=== PATIENT | male | born 1970 | race Caucasian/White ===

== ENCOUNTER 2016-04-10 16:51 | Emergency (ER) | payer BC ==
[~2016-04-10] VITALS: Ht 182.9 cm; Wt 158.8 kg
--- NOTE | 2016-04-10 16:57 | NUR ---
Placed in room 06 . Placed on state game warden, blood pressure machine and pulse oximeter. To gown for exam. Side rails up.
[2016-04-10 16:59] VITALS: BP 162/84; PULSE 77; RESP 18; TEMP 98.5; O2SAT 96
--- NOTE | 2016-04-10 17:00 | NUR ---
Pt report received from SHAYY Fields. Pt c/o hematuria since 12:30 today while at work. He states that he passed blood clots and it [place] when he urinates. Pt denies purulent discharge.
--- NOTE | 2016-04-10 17:03 | NUR ---
Dr. Silva at bedside to assess pt.
--- NOTE | 2016-04-10 17:05 | NUR ---
U/A collected and sent to lab. Urine appeared bright red.
[2016-04-10] MEDS ORDERED: NACL 0.9% 1,000 ML IV ONE (17:15)
--- NOTE | 2016-04-10 17:20 | NUR ---
# 20 gauge angiocath placed to Right Wrist. Use of asceptic technique. Opsite placed over site. Blood return noted. Blood for lab drawn from site. Flushed with 10 cc of normal saline. No evidence of infiltration noted. Patient tolerated well.
[2016-04-10 17:31] LABS: BILIRUBIN,URINE NEGATIVE (NEGATIVE); BLOOD, URINE 3+ (NEGATIVE); CLARITY/URINE CLOUDY (CLEAR); COLOR,URINE RED (YELLOW); GLUCOSE,URINE NEGATIVE (NEGATIVE); KETONES,URINE NEGATIVE (NEGATIVE); LEUKOCYTE ESTERASE ,URINE NEGATIVE (NEGATIVE); NITRITE, URINE NEGATIVE (NEGATIVE); PH,URINE 6.5 (5.0-8.0); PROTEIN URINE 3+ (NEGATIVE); UROBILINOGEN,URINE 0.2 (0.2-1.0)
[2016-04-10 17:36] LABS: BASOPHILS # (AUTO) 0.3 K/uL (0.0-0.2); BASOPHILS % (AUTO) 1.8 % (0.0-2.0); EOSINOPHILS # (AUTO) 0.4 K/uL (0.0-0.4); HEMATOCRIT 51.8 % (36-54); HEMOGLOBIN 16.8 g/dL (14.0-18.0); LYMPHOCYTES % (AUTO) 10.8 % (20.5-51.5); MEAN CORPUSCULAR HEMOGLOBIN 29 pg (27-31); MEAN CORPUSCULAR HGB CONC 33 % (32-36); MEAN CORPUSCULAR VOLUME 90 fL (79.0-98.0); MONOCYTES # (AUTO) 0.9 K/uL (0.0-1.0); MONOCYTES % (AUTO) 5.1 % (1.7-9.3); NEUTROPHILS # (AUTO) 14.9 K/uL (1.8-7.7); NEUTROPHILS % (AUTO) 80.3 % (40.0-70.0); PLATELET COUNT (AUTO) 246 K/uL (130-430); RED BLOOD CELL COUNT(AUTO) 5.76 MIL/uL (4.2-6.2); RED CELL DISTRIBUTION WIDTH 12.6 % (9.0-15.0); WHITE BLOOD COUNT (AUTO) 18.5 K/uL (4.8-10.8)
[2016-04-10 17:39] LABS: CALCIUM 9.5 mg/dL (8.4-11.0); CREATININE 0.93 mg/dL (0.55-1.30); POTASSIUM 3.9 mmol/L (3.5-5.1)
[2016-04-10 17:42] LABS: BACTERIA,URINE FEW /HPF (None Seen); RBC,URINE >100 /HPF (0-3); WBC,URINE 0-3 /HPF (0-3)
[2016-04-10 17:43] LABS: ALBUMIN 3.8 g/dL (3.4-4.8); TOTAL BILIRUBIN 0.6 mg/dL (0.0-1.0)
[2016-04-10 17:53] LABS: PROTHROMBIN TIME 10.9 SECS (9.5-12.5)
--- NOTE | 2016-04-10 18:27 | NUR ---
Pt sitting on side of bed, denies c/o pain or discomfort, no needs verbalized at this time.
[2016-04-10] MEDS ORDERED: cefTRIAXone 1 GM IVPB PREMIX 50 ML IV ONE (18:30)
--- NOTE | 2016-04-10 19:00 | NUR ---
No needs verbalized at this time.
[2016-04-10] MEDS ORDERED: CIPROFLOXACIN HCL 500 MG TABLET PO ONE (19:30)
--- NOTE | 2016-04-10 19:35 | NUR ---
Patient given written and verbal discharge instructions and verbalizes understanding. ER MD discussed with patient the results and treatment provided. Patient in stable condition. ID arm band removed. IV catheter removed intact and dressing applied, no active bleeding. Rx of Cipro given. Patient educated on pain management and to follow up with PMD. Pain Scale 0/10. Opportunity for questions provided and answered.
[2016-04-10 19:36] VITALS: BP 155/76; PULSE 82; RESP 20; TEMP 98.2; O2SAT 100
== END 2016-04-10 19:35 | disposition home or self-care (01) ==
LOC: SED 16:51
DX: N39.0 Urinary tract infection, site not specified (principal); R31.9 Hematuria, unspecified; I10 Essential (primary) hypertension; R07.81 Pleurodynia; Z88.0 Allergy status to penicillin; Z88.1 Allergy status to other antibiotic agents
CPT/HCPCS: 36415; 74176; 80053; 81000; 82150; 83605; 83690; 85025; 85610; 85730; 87040; 96361; 96374; 99285; J0696; J7030

== ENCOUNTER 2017-02-22 15:23 | Inpatient (IN) | payer BC ==
[~2017-02-22] VITALS: Ht 182.9 cm; Wt 173.7 kg
[2017-02-22 15:47] VITALS: BP_SYST 143
--- NOTE | 2017-02-22 16:25 | NUR ---
BROUGHT BACK TO BED #4 AND REPORT GIVEN TO PATRICIA
--- NOTE | 2017-02-22 16:32 | NUR ---
PT AAOX4, ABLE TO VERBALIZE NEEDS. PT STATES HE HAS HAD SHORTNESS OF BREATH FOR THE PAST 1 WEEK. PT STATES AT REST HE IS NOT SHORT OF BREATH BUT HAS DIFFICULTY WITH ACTIVITY AND EVEN TALKING D/T SHORTNESS OF BREATH. PT ABLE TO SPEAK IN FULL SENTENCES AT THIS TIME. LUNGS CLEAR TO AUSCULTATION. NO OTHER COMPLAINTS/INJURIES PER PT OR NOTED.
[2017-02-22] MEDS ORDERED: FUROSEMIDE 100 MG/10 ML VIAL IVP ONE (16:45)
[2017-02-22] MEDS ORDERED: ASPIRIN 325 MG TABLET PO ONE (16:45)
[2017-02-22] MEDS ORDERED: MORPHINE 4 MG/ML INJ. SYRINGE IVP ONE (16:45)
[2017-02-22] MEDS ORDERED: MORPHINE SULFATE 10 MG/ML VIAL ONE (16:49)
[2017-02-22 16:55] LABS: CALCIUM 9.1 mg/dL (8.4-11.0); CREATININE 1.14 mg/dL (0.55-1.30)
[2017-02-22 16:58] LABS: BASOPHILS # (AUTO) 0.1 K/uL (0.0-0.2); BASOPHILS % (AUTO) 0.7 % (0.0-2.0); EOSINOPHILS % (AUTO) 0.3 % (0.0-4.0); HEMATOCRIT 47.3 % (36-54); LYMPHOCYTES # (AUTO) 2.4 K/uL (1.0-5.5); LYMPHOCYTES % (AUTO) 25.7 % (20.5-51.5); MEAN CORPUSCULAR HEMOGLOBIN 31 pg (27-31); MEAN CORPUSCULAR HGB CONC 32 % (32-36); MEAN CORPUSCULAR VOLUME 97 fL (79.0-98.0); MONOCYTES # (AUTO) 0.8 K/uL (0.0-1.0); MONOCYTES % (AUTO) 8.3 % (1.7-9.3); NEUTROPHILS # (AUTO) 6.1 K/uL (1.8-7.7); PLATELET COUNT (AUTO) 283 K/uL (130-430); RED BLOOD CELL COUNT(AUTO) 4.87 MIL/uL (4.2-6.2); WHITE BLOOD COUNT (AUTO) 9.4 K/uL (4.8-10.8)
[2017-02-22] MEDS ORDERED: ALBUTEROL SULFATE 0.083% 2.5 MG/3 ML VIAL.NEB IH ONE (17:00)
[2017-02-22] MEDS ORDERED: methylPREDNISolone SOD SUCC/PF 62.5 MG/ML VIAL IVP ONE (17:00)
[2017-02-22] MEDS ORDERED: MAGNESIUM SULFATE 50 ML IV ONE (17:00)
[2017-02-22] MEDS ORDERED: IPRATROPIUM BROM 0.5 MG/2.5 ML VIAL.NEB (ATROVENT) IH ONE (17:00)
[2017-02-22 17:01] LABS: ALBUMIN 3.2 g/dL (3.4-4.8)
[2017-02-22 17:23] LABS: INR 1.3 (0.80-1.20); PROTHROMBIN TIME 13.1 SECS (9.5-12.5)
--- NOTE | 2017-02-22 18:10 | NUR ---
IV meds given as ordered; pt marino; urine specimen collected and sent to lab
[2017-02-22 18:32] LABS: BILIRUBIN,URINE NEGATIVE (NEGATIVE); BLOOD, URINE 1+ (NEGATIVE); CLARITY/URINE CLEAR (CLEAR); COLOR,URINE YELLOW (YELLOW); GLUCOSE,URINE NEGATIVE (NEGATIVE); KETONES,URINE NEGATIVE (NEGATIVE); LEUKOCYTE ESTERASE ,URINE NEGATIVE (NEGATIVE); NITRITE, URINE NEGATIVE (NEGATIVE); PH,URINE 5.5 (5.0-8.0); PROTEIN URINE 2+ (NEGATIVE)
[2017-02-22 18:38] LABS: BACTERIA,URINE FEW /HPF (None Seen); RBC,URINE NONE SEEN /HPF (0-3); WBC,URINE 0-3 /HPF (0-3)
[2017-02-22 18:39] LABS: MUCUS,URINE None Seen /LPF (None Seen)
[2017-02-22] MEDS ORDERED: ALBMDI INH (18:54)
--- NOTE | 2017-02-22 18:54 | NUR ---
Medication reconciliation completed with information provided by PT. Any prior medication reconciliation on file was reviewed and corrected.
--- NOTE | 2017-02-22 19:10 | NUR ---
JENNI Dacosta at bedside for re-evaluation.
--- NOTE | 2017-02-22 19:15 | NUR ---
Per patient, code status is full code.
--- NOTE | 2017-02-22 19:20 | NUR ---
Consent obtained for CT of chest with contrast.
--- NOTE | 2017-02-22 19:22 | NUR ---
# 18 gauge angiocath placed to LAC. Use of asceptic technique. Opsite placed over site. Blood return noted. Flushed with 10 cc of normal saline. No evidence of infiltration noted. Patient tolerated well.
--- NOTE | 2017-02-22 19:25 | NUR ---
Patient transported to radiology via gurney, accompanied by motorsports technician. No acute distress noted at this time.
[2017-02-22] MEDS ORDERED: IOHEXOL 350 mgI/mL, 150 ML INFUS..BTL IV ONE (19:41)
[2017-02-22] MEDS ORDERED: HEPARIN 25,000 UNITS/D5W 250ML 250 ML IV ONE (21:15)
--- NOTE | 2017-02-22 21:30 | NUR ---
Patient will be admitted to care of Dr. Bryson. Admitted to ICU unit. Will go to room 6. Belongings list completed. Summary report printed. Report will be given at bedside.
[2017-02-22 22:00] VITALS: BP_SYST 129; BP_SYST 158
--- NOTE | 2017-02-22 22:05 | NUR ---
ADMISSION Pt alert and oriented x4. Pt on NC @ 2L. SOB on exertion. ST on monitor. No signs of acute distress noted. IV20G and 18g to LASL, no signs of infiltration noted. Skin intact. Belongings at bedside. Pt denies any pain at this time. Safety precautions in place, call light within reach. Will continue to monitor.
[2017-02-22] MEDS ORDERED: HEPARIN SODIUM,PORCINE 3000 UNITS/0.6 ML BOLUS IVP PRN (22:15)
[2017-02-22] MEDS ORDERED: HEPARIN SODIUM,PORCINE 5000 UNITS/ML VIAL IV ONE (22:30)
--- NOTE | 2017-02-22 22:40 | NUR ---
Dr. Roman at bedside examining patient.
[2017-02-22 23:00] VITALS: BP_SYST 133
[2017-02-22] MEDS: HEPARIN 25,000 UNITS in 250 ML PREMIX IV PRN (23:11)
[2017-02-22] MEDS ORDERED: ZOLPIDEM TARTRATE 5 MG TABLET PO ONE (23:30)
[2017-02-23] VITALS (15 sets, daily range): BP systolic 113–163
--- NOTE | 2017-02-23 03:20 | NUR ---
CHG bath given. Pt tolerated care well. Will continue to monitor.
--- NOTE | 2017-02-23 07:25 | NUR ---
ENDORSEMENT Pt care endorsed to SHAYY Eisenberg at bedside using nursing SBAR.
--- NOTE | 2017-02-23 08:00 | NUR ---
ASSESSMENT PT RESTING IN BED, AAO, DENIES DISCOMFORT, SLIGHT SOB AT REST. RECEIVING O2 AT 2 LMP.
[2017-02-23 08:06] LABS: CREATININE 0.92 mg/dL (0.55-1.30)
[2017-02-23 08:30] LABS: BASOPHILS % (AUTO) 0.3 % (0.0-2.0); EOSINOPHILS % (AUTO) 0.1 % (0.0-4.0); HEMATOCRIT 51.5 % (36-54); HEMOGLOBIN 16.6 g/dL (14.0-18.0); LYMPHOCYTES # (AUTO) 0.6 K/uL (1.0-5.5); MEAN CORPUSCULAR HEMOGLOBIN 30 pg (27-31); MEAN CORPUSCULAR HGB CONC 32 % (32-36); MEAN CORPUSCULAR VOLUME 93 fL (79.0-98.0); MONOCYTES # (AUTO) 0.1 K/uL (0.0-1.0); MONOCYTES % (AUTO) 1.5 % (1.7-9.3); NEUTROPHILS # (AUTO) 8.6 K/uL (1.8-7.7); NEUTROPHILS % (AUTO) 92.1 % (40.0-70.0); PLATELET COUNT (AUTO) 183 K/uL (130-430); RED BLOOD CELL COUNT(AUTO) 5.54 MIL/uL (4.2-6.2); RED CELL DISTRIBUTION WIDTH 13.4 % (9.0-15.0); WHITE BLOOD COUNT (AUTO) 9.3 K/uL (4.8-10.8)
[2017-02-23 08:34] LABS: THYROID STIMULATING HORMONE 0.57 uIu/mL (0.36-3.74)
--- NOTE | 2017-02-23 09:15 | NUR ---
HEPARIN DRIP HEPARIN DRIP INCREASED TO 1800 U/HR PER PROTECOL. 3000 UNITS GIVEN IVP IN ADDITION PER PROTECOL. HAS EPISODES OF VENTRICULAR BIGEMY. DENIES CHEST DISCOMFORT, PAIN OR PRESSURE.
[2017-02-23] MEDS: PANTOPRAZOLE SODIUM 40 MG TAB PO SCH (09:32)
[2017-02-23] MEDS: HEPARIN 25,000 UNITS in 250 ML PREMIX IV PRN ×2 (09:42→14:26)
--- NOTE | 2017-02-23 10:00 | NUR ---
TELEMETRY PT IS TELEMETRY STATUS NOW. TEACHING DONE REGARDING MEDICATIONS, INSTRUCTED TO USE URINAL SO NURSE CAN DOCUMENT URINE OUTPUT. HAS NO COMPLAINTS OF DISCOMFORT OR PAIN.
--- NOTE | 2017-02-23 10:00 | NUR ---
VENOUS DOPPLER VENOUS DOPPLER STUDY COMPLETED, NO EVIDENCE OF CLOTS.
[2017-02-23] MEDS ORDERED: FUROSEMIDE 40 MG/4 ML VIAL IVP ONE (10:45)
[2017-02-23] MEDS ORDERED: IPRATROPIUM BROM 0.5 MG/2.5 ML VIAL.NEB (ATROVENT) INH PRN (10:45)
[2017-02-23] MEDS ORDERED: ALBUTEROL SULFATE 0.083% 2.5 MG/3 ML VIAL.NEB INH PRN (10:45)
--- NOTE | 2017-02-23 14:00 | NUR ---
HEPARIN HEPARIN DRIP INCREASED TO 1900 U/HR. PER PROTECOL. HAS NO C/O OF DISCOMFORT, USES URINAL, NO BM. HAS NO REQUESTS.
--- NOTE | 2017-02-23 16:00 | NUR ---
DR. AMBER CLARK PAGED REGARDING PTS. REQUEST FOR SLEEPING MEDICATION.
--- NOTE | 2017-02-23 19:00 | NUR ---
REPORT REPORT GIVEN TO NIGHT NURSE.
[2017-02-23] MEDS ORDERED: ZOLPIDEM TARTRATE 5 MG TABLET PO PRN (19:15)
[2017-02-23] MEDS: IPRATROPIUM BROM 0.5 MG/2.5 ML VIAL.NEB (ATROVENT) INH SCH (19:51)
[2017-02-23] MEDS: ALBUTEROL SULFATE 0.083% 2.5 MG/3 ML VIAL.NEB INH SCH (19:51)
--- NOTE | 2017-02-23 20:09 | NUR ---
CALLED DR. EPPS FOR CONSULT. SPOKE TO [facility]. NURSE IS AWARE.
--- NOTE | 2017-02-23 20:30 | NUR ---
PM SHIFT ASSESSMENT Pt alert and oriented x4. Pt on NC @ 2L. SOB on exertion. ST on monitor. No signs of acute distress noted. IV20G and 18g to LASL, no signs of infiltration noted. Heparin drip infusing. Skin intact. Belongings at bedside. Pt denies any pain at this time. Safety precautions in place, call light within reach. Will continue to monitor.
--- NOTE | 2017-02-23 20:50 | NUR ---
LAB here for PTT blood draw. Will continue to monitor.
[2017-02-23] MEDS ORDERED: *HEPARIN PER PHARMACY XX PRN (21:15)
[2017-02-23] MEDS: methylPREDNISolone SOD SUCC 40 MG/ML VIAL IVP SCH (21:39)
[2017-02-23] MEDS: LORazepam 2 MG/ML VIAL IVP PRN (22:30)
[2017-02-23] MEDS: HEPARIN SODIUM,PORCINE 2000 UNITS/0.4 ML BOLUS IVP PRN (22:32)
[2017-02-24] VITALS (7 sets, daily range): BP systolic 122–149
[2017-02-24] MEDS: ALBUTEROL SULFATE 0.083% 2.5 MG/3 ML VIAL.NEB INH SCH ×4 (01:00→19:18)
[2017-02-24] MEDS: IPRATROPIUM BROM 0.5 MG/2.5 ML VIAL.NEB (ATROVENT) INH SCH ×4 (01:00→19:18)
--- NOTE | 2017-02-24 01:10 | NUR ---
Pt sleeping in bed. VSS. No signs of acute distress or SOB noted. Will continue to monitor.
[2017-02-24] MEDS: HEPARIN 25,000 UNITS in 250 ML PREMIX IV PRN ×2 (02:44→17:02)
--- NOTE | 2017-02-24 06:35 | NUR ---
Pt made aware of transfer to tele unit. VSS. Will continue to monitor.
--- NOTE | 2017-02-24 07:13 | NUR ---
ENDORSEMENT Pt care endorsed to day shift RN at bedside using nursing SBAR.
[2017-02-24 07:27] LABS: BASOPHILS % (AUTO) 0.3 % (0.0-2.0); HEMATOCRIT 50.6 % (36-54); HEMOGLOBIN 16.4 g/dL (14.0-18.0); LYMPHOCYTES # (AUTO) 0.7 K/uL (1.0-5.5); LYMPHOCYTES % (AUTO) 5.4 % (20.5-51.5); MEAN CORPUSCULAR HEMOGLOBIN 30 pg (27-31); MEAN CORPUSCULAR HGB CONC 33 % (32-36); MEAN CORPUSCULAR VOLUME 93 fL (79.0-98.0); MONOCYTES # (AUTO) 0.5 K/uL (0.0-1.0); MONOCYTES % (AUTO) 3.8 % (1.7-9.3); NEUTROPHILS # (AUTO) 11.2 K/uL (1.8-7.7); NEUTROPHILS % (AUTO) 90.5 % (40.0-70.0); PLATELET COUNT (AUTO) 223 K/uL (130-430); RED BLOOD CELL COUNT(AUTO) 5.43 MIL/uL (4.2-6.2); RED CELL DISTRIBUTION WIDTH 13.8 % (9.0-15.0); WHITE BLOOD COUNT (AUTO) 12.4 K/uL (4.8-10.8)
[2017-02-24] MEDS ORDERED: FLU VACC QS 2017-18(36MOS+)/PF 0.5 ML/SYR SYRINGE I.M. PRN (07:30)
--- NOTE | 2017-02-24 07:45 | NUR ---
AM NOTES: Received patient alert,awake. oriented, denies pain and discomfort at this time. informed about the poc. sob on exertion noted. on 02@2l/nc saturation 91%. heparin drip infusing 85520 units/hr. left ac#18. skin at ramsey le discoloration and swelling +3. diuresis. encourage call when assistance needed. Addendum: 02/24/17 at 0851 by Janelle Jones RN correction of units supposed to be 2100 units/hr
--- NOTE | 2017-02-24 07:50 | NUR ---
PTT 47.2, HEPARIN DRIP INCREASE TO 100 UNITS PER HOUR. NOW 2200UNITS /HR.
--- NOTE | 2017-02-24 08:43 | NUR ---
PAGED DR. RALPH IN REQUEST FROM DR. CLARK.
[2017-02-24] MEDS: methylPREDNISolone SOD SUCC 40 MG/ML VIAL IVP SCH ×2 (08:45→20:47)
[2017-02-24] MEDS: PANTOPRAZOLE SODIUM 40 MG TAB PO SCH (08:45)
--- NOTE | 2017-02-24 09:40 | NUR ---
TRANSFERRED CARE TO PATRICIA LUCAS. PATIENT ROOM ASSIGNMENT 117B. ALL NEEDS METS. BELONGINGS SENT WITH PATIENT. NO OTHER CONCERNED NOTED.
--- NOTE | 2017-02-24 10:00 | NUR ---
RECEIVED PT FROM ICU, REPORT FROM KVNG RN. PT AAOx4, ABLE TO VERBALIZE NEEDS. NO SIGNS DISTRESS NOTED. PT PLACED ON TELEMETRY. 02 SAT 97% ON 2LNC, NORMAL RESPIRATIONS OBSERVED, PT DENIES SHORTNESS OF BREATH AT THIS TIME AND STATES HE ONLY HAS DYSPNEA WITH ACTIVITY. 20G LEFT FOREARM IV WITH HEPARIN DRIP AT 2200UNITS AT THIS TIME. PT DENIES PAIN. HOB ELEVATED, BED LOCKED AND IN LOWEST POSITION, CALL LIGHT IN REACH. WILL CONTINUE TO MONITOR.
--- NOTE | 2017-02-24 12:00 | NUR ---
ROUNDS PT AWAKE IN BED TALKING TO FAMILY, NO SIGNS DISTRESS NOTED. PT DENIES PAIN/SHORTNESS OF BREATH AT THIS TIME. DISCUSSED PLAN OF CARE WITH PT AND ANSWERED QUESTIONS REGARDING TX WITH HEPARIN DRIP. WILL CONTINUE TO MONITOR.
--- NOTE | 2017-02-24 14:05 | NUR ---
ROUNDS PT AWAKE, SITTING UP IN BED WATCHING TV. NO SIGNS DISTRESS NOTED. PT DENIES PAIN/SHORTNESS OF BREATH. WILL CONTINUE TO MONITOR.
[2017-02-24] MEDS ORDERED: METOPROLOL SUCCINATE 25 MG TAB.SR.24H (TOPROL XL) PO ONE (15:00)
[2017-02-24] MEDS ORDERED: LISINOPRIL 5 MG TABLET PO ONE (15:00)
--- NOTE | 2017-02-24 15:17 | NUR ---
CONSULTATION PAGED REASON FOR CONSULTATION:P.E. WAS CONSULT CALLED?:Y PERSON WHO WAS NOTIFIED:ELVIE CONSULTING PHYSICIAN:SARAH SULLIVAN MENTAL HEALTH CASE MANAGER SPECIALTY:HEMATOLOGY MENTAL HEALTH CASE MANAGER PHONE NUMBER:[phone] REQUESTING PHYSICIAN:DARA BENNETT
--- NOTE | 2017-02-24 15:37 | NUR ---
Dietitian Recommendations * Recommend continuing cardiac diet per MD * Consider HgA1c lab draw LP, RD Please refer to Nutrition Assessment for details.
--- NOTE | 2017-02-24 15:44 | NUR ---
ROUNDS PT SITTING UP IN BED TALKING TO FRIEND. NO SIGNS DISTRESS NOTED. PT ON 2LNC, DENIES SHORTNESS OF BREATH, NORMAL RESPIRATIONS NOTED, PT ABLE TO SPEAK IN FULL SENTENCES WITHOUT DIFFICULTY. PT DENIES PAIN AT THIS TIME. WILL CONTINUE TO MONITOR.
[2017-02-24] MEDS: HEPARIN SODIUM,PORCINE 2000 UNITS/0.4 ML BOLUS IVP PRN (17:03)
--- NOTE | 2017-02-24 17:08 | NUR ---
HEPARIN HEPARIN DRIP INCREASED TO 2400 UNITS/HR AND 3000UNITS IVP GIVEN, PTT 30.8.
--- NOTE | 2017-02-24 18:25 | NUR ---
END OF SHIFT PT AAOX4, ABLE TO VERBALIZE NEEDS. PT SITTING UP IN BED EATING DINNER. PT ON 2LNC, DENIES SHORTNESS OF BREATH. 20G LEFT FOREARM IV WITH HEPARIN DRIP INFUSING AT 2400 UNITS/HR, NO SIGNS INFILTRATION NOTED. PT DENIES PAIN AT THIS TIME. PT ENCOURAGED TO CALL FOR ASSISTANCE WHEN HE NEEDS TO AMBULATE TO THE BATHROOM OR FOR [place] OTHER NEEDS. HOB ELEVATED, BED LOCKED AND IN LOWEST POSITION, CALL LIGHT IN REACH.
[2017-02-24 19:16] LABS: INR 1.1 (0.80-1.20); PROTHROMBIN TIME 11.5 SECS (9.5-12.5)
--- NOTE | 2017-02-24 19:45 | NUR ---
Beginning of shift assessment Pt sitting up in bed A&Ox4. Able to make needs known, able to follow commands. Pt on O2 @ 2 l/m via n/c. Respirations even and unlabored. no s/s of respiratory distress. Pt denies pain at this time. dust box worker shows ST. 18 g to L AC infusing Heparin drip at 2400 u/hr. No s/s of infiltration or infection. 20 g IV to L FA, SL. No s/s of infiltration or infection. Call light within reach, bed in low position for safety, will continue to monitor.
[2017-02-24] MEDS ORDERED: WARFARIN SODIUM 5 MG TABLET PO ONE (21:00)
--- NOTE | 2017-02-24 23:41 | NUR ---
Heparin drip aPTT 47.2, heparin drip adjusted per protocol. Now infusing at 2500 u/hr. Will continue to monitor
[2017-02-25 01:06] VITALS: BP_SYST 124
--- NOTE | 2017-02-25 01:20 | NUR ---
Anxiety Pt c/o anxiety, requesting Ativan to help him relax. Will administer per MD order
[2017-02-25] MEDS: IPRATROPIUM BROM 0.5 MG/2.5 ML VIAL.NEB (ATROVENT) INH SCH ×4 (01:36→20:06)
[2017-02-25] MEDS: LORazepam 2 MG/ML VIAL IVP PRN ×2 (01:36→22:55)
[2017-02-25] MEDS: ALBUTEROL SULFATE 0.083% 2.5 MG/3 ML VIAL.NEB INH SCH ×4 (01:36→20:06)
--- NOTE | 2017-02-25 04:36 | NUR ---
IV dislodged Pt reports he was repositioning himself in bed and IV dislodged. 18 g to L AC completely pulled out. No active bleeding noted. IV catheter intact. Heparin drip now infusing to IV site on L FA.
[2017-02-25 06:55] LABS: INR 1.1 (0.80-1.20); PROTHROMBIN TIME 11.5 SECS (9.5-12.5)
[2017-02-25 06:57] LABS: BASOPHILS % (AUTO) 0.3 % (0.0-2.0); HEMATOCRIT 49.3 % (36-54); HEMOGLOBIN 15.9 g/dL (14.0-18.0); LYMPHOCYTES # (AUTO) 0.7 K/uL (1.0-5.5); LYMPHOCYTES % (AUTO) 5.9 % (20.5-51.5); MEAN CORPUSCULAR HEMOGLOBIN 30 pg (27-31); MEAN CORPUSCULAR HGB CONC 32 % (32-36); MEAN CORPUSCULAR VOLUME 93 fL (79.0-98.0); MONOCYTES # (AUTO) 0.6 K/uL (0.0-1.0); MONOCYTES % (AUTO) 4.8 % (1.7-9.3); NEUTROPHILS # (AUTO) 10.7 K/uL (1.8-7.7); PLATELET COUNT (AUTO) 226 K/uL (130-430); RED BLOOD CELL COUNT(AUTO) 5.29 MIL/uL (4.2-6.2); RED CELL DISTRIBUTION WIDTH 13.4 % (9.0-15.0)
--- NOTE | 2017-02-25 07:20 | NUR ---
End of shift report Endorsed pt care and SBAR to SHAYY Oh.
[2017-02-25 08:00] VITALS: BP_SYST 136
--- NOTE | 2017-02-25 08:00 | NUR ---
AM ASSESSMENT PT IN BED WITH EYES CLOSED, RISE AND FALL OF CHEST NOTED, RESPONDS TO VERBAL STIMULATION. NO SIGNS DISTRESS NOTE.D O2 SAT 93% ON 2LNC, NORMAL RESPIRATIONS OBSERVED, PT DENIES SHORTNESS OF BREATH AND STATES HE ONLY GETS SLIGHTLY SHORT OF BREATH AFTER GETTING UP AND WALKING TO THE RESTROOM. PT ENCOURAGED TO USE CALL LIGHT FOR ASSISTANCE WHEN HE WANTS TO AMBULATE TO BATHROOM. 20G LEFT FOREARM IV WITH HEPARIN DRIP AT 2500 UNITS/HR, NO SIGNS INFILTRATION NOTED. HOB ELEVATED, BED LOCKED AND IN LOWEST POSITION, CALL LIGHT IN REACH. WILL CONTINUE TO MONITOR.
[2017-02-25 08:24] LABS: CALCIUM 9.8 mg/dL (8.4-11.0); CREATININE 0.95 mg/dL (0.55-1.30); POTASSIUM 4.2 mmol/L (3.5-5.1)
[2017-02-25] MEDS: ATORVASTATIN 20 MG TABLET PO SCH (08:35)
[2017-02-25] MEDS: METOPROLOL SUCCINATE 25 MG TAB.SR.24H (TOPROL XL) PO SCH (08:36)
[2017-02-25] MEDS: PANTOPRAZOLE SODIUM 40 MG TAB PO SCH (08:37)
[2017-02-25] MEDS: ASPIRIN 81 MG TABLET(ECOTRIN) PO SCH (08:37)
[2017-02-25] MEDS: FUROSEMIDE 40 MG/4 ML VIAL IVP SCH (08:38)
[2017-02-25] MEDS: methylPREDNISolone SOD SUCC 40 MG/ML VIAL IVP SCH (08:38)
[2017-02-25] MEDS ORDERED: LISINOPRIL 5 MG TABLET PO SCH (09:00)
--- NOTE | 2017-02-25 09:39 | NUR ---
HEPARIN DRIP HEPARIN DRIP INCREASED FROM 2500 UNITS/HR TO 2600 UNITS/HR D/T PTT 44.8, VERIFIED BY IGNACIA LUCAS.
--- NOTE | 2017-02-25 10:39 | NUR ---
ROUNDS PT AMBULATED TO RESTROOM WITHOUT DIFFICULTY, GAIT IS STEADY. PT DENIES SHORTNESS OF BREATH. PT WAS ABLE TO GET BACK INTO BED WITHOUT ASSISTANCE. WILL CONTINUE TO MONITOR.
[2017-02-25 12:10] VITALS: BP_SYST 139
--- NOTE | 2017-02-25 12:21 | NUR ---
ROUNDS PT AWAKE, SITTING UP IN BED EATING LUNCH. PT DENIES SHORTNESS OF BREATH/CHEST PAIN. PT STATES THAT HE HAS BEEN ABLE TO AMBULATE TO BATHROOM WITHOUT DIFFICULTY AND HAS NOT BEEN FEELING SHORT OF BREATH. PT ON 2LNC, NORMAL RESPIRATIONS OBSERVED. CALL LIGHT IN REACH. WILL CONTINUE TO MONITOR.
[2017-02-25] MEDS: HEPARIN 25,000 UNITS in 250 ML PREMIX IV PRN ×2 (13:40→22:55)
--- NOTE | 2017-02-25 14:10 | NUR ---
ROUNDS PT AWAKE IN BED, WATCHING TV. NO SIGNS DISTRESS NOTED. PT DENIES PAIN/SHORTNESS OF BREATH. CALL LIGHT IN REACH. WILL CONTINUE TO MONITOR.
[2017-02-25 16:00] VITALS: BP_SYST 124
--- NOTE | 2017-02-25 16:00 | NUR ---
ROUNDS PT AWAKE, SITTING UP IN BED TALKING TO FRIEND. NO SIGNS DISTRESS NOTED. PT DENIES PAIN/SHORTNESS OF BREATH. PT ON 2LNC, NORMAL RESPIRATIONS NOTED. CALL LIGHT IN REACH. WILL CONTINUE TO MONITOR.
[2017-02-25] MEDS ORDERED: WARFARIN SODIUM 5 MG TABLET PO SCH (18:00)
[2017-02-25] MEDS ORDERED: LISINOPRIL 5 MG TABLET PO ONE (18:00)
--- NOTE | 2017-02-25 18:04 | NUR ---
END OF SHIFT PT AAOX4, SITTING UP IN BED WATCHING TV. NO SIGNS DISTRESS NOTED, PT DENIES PAIN/SHORTNESS OF BREATH. PT ON 2LNC, NORMAL RESPIRATIONS NOTED. SINUS TACHY ON MONITOR. 20G LEFT FOREARM IV WITH HEPARIN DRIP AT 2600 UNITS/HR, NO SIGNS INFILTRATION NOTED. HOB ELEVATED, BED LOCKED AND IN LOWEST POSITION, CALL LIGHT IN REACH. WILL CONTINUE TO MONITOR.
[2017-02-25 20:00] VITALS: BP_SYST 115
--- NOTE | 2017-02-25 20:00 | NUR ---
INITIAL CONTACT patient is alert oriented x 4. breathing even and unlabored. breath sound clear on bilateral upper lobe, wheezing bilateral lower lobe. abdomen is large, round, nontender. bilateral radial pulse regular and equal, bilateral dorsalis pedis pulse weak. bilateral upper and lower extremity strength normal. 2+ edema on bilateral lower extremity. plan of care discussed, advised patient to call for assist. bed in lowest position, call light within reach. will continue to monitor.
[2017-02-25] MEDS: PREDNISONE 20 MG TABLET PO SCH (21:24)
--- NOTE | 2017-02-25 22:00 | NUR ---
ROUNDS patient watching t.v. requests cake. informed him that we only have jello at this time. patient requested Jello. two jello given. advised patient to call for assist PRN. call light within reach. bed in lowest position. will continue to monitor.
--- NOTE | 2017-02-26 00:20 | NUR ---
ROUNDS patient was sleeping comfortably in bed. easily aroused to take vital signs. patient denies any pain at this time. will continue to monitor.
[2017-02-26 00:21] VITALS: BP_SYST 144
--- NOTE | 2017-02-26 01:50 | NUR ---
ROUNDS patient sleeping in bed comfortably, no distress noted. will continue to monitor.
[2017-02-26] MEDS: ALBUTEROL SULFATE 0.083% 2.5 MG/3 ML VIAL.NEB INH SCH ×2 (02:28→07:22)
[2017-02-26] MEDS: IPRATROPIUM BROM 0.5 MG/2.5 ML VIAL.NEB (ATROVENT) INH SCH ×2 (02:29→07:22)
--- NOTE | 2017-02-26 03:46 | NUR ---
ROUNDS patient sleeping in bed, breathing even and unlabored. bed in lowest position, call light within reach. will continue to monitor.
[2017-02-26 05:00] VITALS: BP_SYST 133
--- NOTE | 2017-02-26 06:26 | NUR ---
ROUNDS patient sitting in bed comfortably, requesting pudding. pudding given to patient. patient denies any pain or sob. will continue to monitor.
--- NOTE | 2017-02-26 07:16 | NUR ---
END OF SHIFT care endorsed to dayshift RN. no distress noted with patient.
--- NOTE | 2017-02-26 07:30 | NUR ---
AM NOTES: RECEIVED PATIENT LYING IN BED. AWAKE. ORIENTED. INFORMED ABOUT THE POC. NO S/S OF BLEEDING ON HEPARIN DRIP 2600 UNITS/HR. IV SITE PATENT.SOB ON EXERTION NOTED. ENCOURAGE TO CALL WHEN ASSISTANCE NEEDED. WILL MONITOR.
[2017-02-26 07:46] LABS: BASOPHILS # (AUTO) 0.1 K/uL (0.0-0.2); BASOPHILS % (AUTO) 1.1 % (0.0-2.0); EOSINOPHILS % (AUTO) 0.1 % (0.0-4.0); HEMATOCRIT 48.7 % (36-54); HEMOGLOBIN 16.1 g/dL (14.0-18.0); LYMPHOCYTES # (AUTO) 1.4 K/uL (1.0-5.5); LYMPHOCYTES % (AUTO) 11.9 % (20.5-51.5); MEAN CORPUSCULAR HEMOGLOBIN 30 pg (27-31); MEAN CORPUSCULAR HGB CONC 33 % (32-36); MEAN CORPUSCULAR VOLUME 92 fL (79.0-98.0); MONOCYTES # (AUTO) 0.8 K/uL (0.0-1.0); MONOCYTES % (AUTO) 6.6 % (1.7-9.3); NEUTROPHILS # (AUTO) 9.8 K/uL (1.8-7.7); NEUTROPHILS % (AUTO) 80.3 % (40.0-70.0); PLATELET COUNT (AUTO) 225 K/uL (130-430); RED BLOOD CELL COUNT(AUTO) 5.31 MIL/uL (4.2-6.2); RED CELL DISTRIBUTION WIDTH 13.2 % (9.0-15.0); WHITE BLOOD COUNT (AUTO) 12.1 K/uL (4.8-10.8)
[2017-02-26 08:00] VITALS: BP_SYST 123
[2017-02-26] MEDS: HEPARIN 25,000 UNITS in 250 ML PREMIX IV PRN ×2 (08:10→21:04)
[2017-02-26 08:12] LABS: CALCIUM 9.1 mg/dL (8.4-11.0); CREATININE 0.97 mg/dL (0.55-1.30); POTASSIUM 4.2 mmol/L (3.5-5.1)
[2017-02-26 08:14] LABS: INR 1.5 (0.80-1.20)
[2017-02-26] MEDS: PANTOPRAZOLE SODIUM 40 MG TAB PO SCH (08:17)
[2017-02-26] MEDS: PREDNISONE 20 MG TABLET PO SCH ×2 (08:17→21:10)
[2017-02-26] MEDS: METOPROLOL SUCCINATE 25 MG TAB.SR.24H (TOPROL XL) PO SCH (08:18)
[2017-02-26] MEDS: ATORVASTATIN 20 MG TABLET PO SCH (08:18)
[2017-02-26] MEDS: LISINOPRIL 5 MG TABLET PO SCH (08:18)
[2017-02-26] MEDS: ASPIRIN 81 MG TABLET(ECOTRIN) PO SCH (08:20)
--- NOTE | 2017-02-26 09:35 | NUR ---
PTT 64.8, HEPARIN DRIP INFUSION SAME RATE 2600 UNITS/HR. DAILY PTT PER PROTOCOL ORDERED.
[2017-02-26] MEDS: FUROSEMIDE 40 MG/4 ML VIAL IVP SCH (10:13)
[2017-02-26] MEDS ORDERED: PRO40 PO (11:49)
[2017-02-26] MEDS ORDERED: FURO-150 PO (11:49)
[2017-02-26] MEDS ORDERED: METO25TA3 PO (11:49)
[2017-02-26] MEDS ORDERED: METF-509 PO (11:49)
[2017-02-26] MEDS ORDERED: LIP20 PO (11:49)
[2017-02-26] MEDS ORDERED: PRED20TA PO (11:49)
[2017-02-26] MEDS ORDERED: LISI-209 PO (11:49)
[2017-02-26] MEDS ORDERED: ASPI-1063 PO (11:49)
[2017-02-26 12:00] VITALS: BP_SYST 118; BP_SYST 145
--- NOTE | 2017-02-26 12:00 | NUR ---
MD ROUNDS: SEEN BY DR. RIOS WITH NEW ORDER RECEIVED.
[2017-02-26] MEDS ORDERED: RIVA15TA PO (12:21)
[2017-02-26] MEDS ORDERED: RIVAROXABAN 15 MG TABLET PO ONE (14:00)
--- NOTE | 2017-02-26 14:52 | NUR ---
D/C Patient Patient given medication reconciliation form and D/C instructions. Exit Care provided. Patient verbalized understanding. MD discussed with patient the results and treatment provided. Ambulatory with steady gait for discharge to home. Patient in stable condition, ID band removed. IV catheter removed, intact and dressing applied, no active bleeding. Rx of XARELTO, LISINOPRIL, ASPIRIN, METOPROLOL, LASIX, PREDNISONE,PROTONIX, LIPITOR given. Patient educated on pain management. All belongings sent with patient.WHEELOUT VIA WHEELCHAIR. MIAN [employer] ACID TESTER.
--- NOTE | 2017-02-26 15:15 | NUR ---
MD RALPH IS HERE, LOOKING FOR PATIENT. INFORMED PATIENT WAS DISCHARGE 15 MINS AGO. STATED PATIENT NEED TO COME BACK TO HOSPITAL. NOT STABLE FOR DISCHARGE DUE TO PULMONARY EMBOLISM AND LEVEL ON PT/INR AND PTT NOT ON THERAPEUTIC LEVEL. MD RALPH , L S/W PATIENT VIA PHONE AND PT IS WILLING TO COMEBACK IN THE HOSPITAL TO CONTINUE TREATMENT. CHARGE NURSE AND ESTIMATION MANAGER INVOLVED.
[2017-02-26] MEDS ORDERED: *HEPARIN PER PHARMACY XX ONE (15:30)
--- NOTE | 2017-02-26 16:00 | NUR ---
PATIENT CAME BACK. STABLE CONDITION. VITAL SIGN STABLE, AFEBRILE. NO S/S OF DISTRESS. INFORMED ABOUT THE POC.PLACED BACK TO TELEMONITOR ST. ROOM ASSIGNMENT 109A.
--- NOTE | 2017-02-26 16:47 | NUR ---
MD ARAIZA INFORMED PATIENT IS BACK.
[2017-02-26 16:50] VITALS: BP_SYST 133
[2017-02-26] MEDS ORDERED: WARFARIN SODIUM 5 MG TABLET PO SCH (18:00)
--- NOTE | 2017-02-26 18:10 | NUR ---
ALL NEEDS METS. NO SIGNIFICANT CHANGES OF CONDITION NOTED. COUMADIN ADMINISTERED PER PHARMACY DOSE. NO BLEEDING NOTED. WILL ENDORSED TO INCOMING NURSE.
[2017-02-26 20:00] VITALS: BP_SYST 110
[2017-02-26] MEDS ORDERED: HEPARIN SODIUM,PORCINE 3000 UNITS/0.6 ML BOLUS IVP PRN (20:00)
[2017-02-26] MEDS ORDERED: HEPARIN SODIUM,PORCINE 2000 UNITS/0.4 ML BOLUS IVP PRN (20:00)
--- NOTE | 2017-02-26 20:10 | NUR ---
INITIAL CONTACT patient ambulated back from restroom without difficulty. patient is alert oriented x 4. breathing even and unlabored, breath sound clear on bilateral upper lobe and crackles on bilateral lower lobes. patient abdomen is large, soft, nontender. bowel sound active. LBM 02/27/16. bilateral radial pulse regular and equal, bilateral dorsalis pedis pulse weak. bilateral upper and lower extremity strength normal. plan of care discussed, and advised patient to call for assist PRN. patient verbalized understanding. bed in lowest position, call light within reach. will continue to monitor.
--- NOTE | 2017-02-26 21:05 | NUR ---
HEPARIN DRIP restarted heparin drip. initial rate 1500 units/hr. order for aPTT will be changed to be drawn at 0300 on 02/28/16 per protocol. educated patient on heparin. patient verbalized understanding. Addendum: 02/27/17 at 0221 by Gisela Main RN date is 02/27/17
[2017-02-26] MEDS: LORazepam 2 MG/ML VIAL IVP PRN (22:39)
--- NOTE | 2017-02-26 22:40 | NUR ---
ROUNDS patient requesting ativan. ativan administered. informed patient to call for assist when ambulating, ativan increases his risk of falling. patient verbalized understanding. bed in lowest position, call light within reach. will continue to monitor.
[2017-02-27] VITALS (7 sets, daily range): BP systolic 115–149
--- NOTE | 2017-02-27 | NUR ---
ROUNDS patient sleeping in bed, breathing even and nonlabored. bed in lowest position, call light within reach. will continue to monitor.
[2017-02-27] MEDS: ALBUTEROL SULFATE 0.083% 2.5 MG/3 ML VIAL.NEB INH SCH ×5 (02:15→19:57)
[2017-02-27] MEDS: IPRATROPIUM BROM 0.5 MG/2.5 ML VIAL.NEB (ATROVENT) INH SCH ×4 (02:16→19:57)
[2017-02-27] MEDS: LORazepam 2 MG/ML VIAL IVP PRN (02:46)
--- NOTE | 2017-02-27 02:46 | NUR ---
ROUNDS patient requesting ativan. ativan administered. educated patient on increased risk of fall. patient verbalized understanding. bed in lowest position, call light within reach. will continue to monitor.
[2017-02-27 03:44] LABS: HEMATOCRIT 52.5 % (36-54); HEMOGLOBIN 16.9 g/dL (14.0-18.0); MEAN CORPUSCULAR HEMOGLOBIN 30 pg (27-31); MEAN CORPUSCULAR HGB CONC 32 % (32-36); MEAN CORPUSCULAR VOLUME 93 fL (79.0-98.0); NEUTROPHILS % (AUTO) 74.6 % (40.0-70.0); PLATELET COUNT (AUTO) 231 K/uL (130-430); RED BLOOD CELL COUNT(AUTO) 5.66 MIL/uL (4.2-6.2); RED CELL DISTRIBUTION WIDTH 13.6 % (9.0-15.0); WHITE BLOOD COUNT (AUTO) 10.4 K/uL (4.8-10.8)
[2017-02-27 03:45] LABS: BASOPHILS # (AUTO) 0.4 K/uL (0.0-0.2); BASOPHILS % (AUTO) 4.1 % (0.0-2.0); EOSINOPHILS # (AUTO) 0.1 K/uL (0.0-0.4); EOSINOPHILS % (AUTO) 0.9 % (0.0-4.0); LYMPHOCYTES # (AUTO) 1.3 K/uL (1.0-5.5); LYMPHOCYTES % (AUTO) 12.4 % (20.5-51.5); MONOCYTES # (AUTO) 0.8 K/uL (0.0-1.0); NEUTROPHILS # (AUTO) 7.8 K/uL (1.8-7.7)
[2017-02-27 03:49] LABS: CALCIUM 9.3 mg/dL (8.4-11.0); CREATININE 0.96 mg/dL (0.55-1.30); POTASSIUM 4.1 mmol/L (3.5-5.1)
[2017-02-27 03:54] LABS: INR 2.5 (0.80-1.20); PROTHROMBIN TIME 25.9 SECS (9.5-12.5)
[2017-02-27] MEDS: HEPARIN 25,000 UNITS in 250 ML PREMIX IV PRN ×2 (04:22→10:49)
--- NOTE | 2017-02-27 04:22 | NUR ---
HEPARIN change in heparin to 1600 units/hr. educated patient on risk of bleeding. patient verbalized understanding. will continue to monitor.
--- NOTE | 2017-02-27 06:30 | NUR ---
ROUNDS patient denies any sob, breathing even and unlabored. advised patient to call PRN. patient verbalized understanding. call light within reach. will continue to monitor.
--- NOTE | 2017-02-27 07:28 | NUR ---
END OF SHIFT care endorsed to dayshift RN. informed her that patient is having another PTT checked at 1024 and heparin drip might need to be readjusted. no distress noted with patient.
--- NOTE | 2017-02-27 08:00 | NUR ---
Opening Note Report received form NOC shift nurse. Patient is currently eating breakfast in bed. Heparin drip is at 16u/hr on the LFA 22g. Patient is refusing to use O2 at the moment. Call light is within reach and bed is in low position. Will continue to monitor.
[2017-02-27] MEDS ORDERED: FUROSEMIDE 40 MG TABLET PO SCH (09:00)
[2017-02-27] MEDS: PANTOPRAZOLE SODIUM 40 MG TAB PO SCH (09:25)
[2017-02-27] MEDS: ATORVASTATIN 20 MG TABLET PO SCH (09:25)
[2017-02-27] MEDS: ASPIRIN 81 MG TABLET(ECOTRIN) PO SCH (09:26)
[2017-02-27] MEDS: LISINOPRIL 5 MG TABLET PO SCH (09:26)
[2017-02-27] MEDS: PREDNISONE 20 MG TABLET PO SCH (09:26)
[2017-02-27] MEDS: METOPROLOL SUCCINATE 25 MG TAB.SR.24H (TOPROL XL) PO SCH (09:27)
--- NOTE | 2017-02-27 11:40 | NUR ---
Heparin Protocol PTT level was drawn at 1025. Just received current PTT level which is 46.4. Drip was increased to form 16 to 17u/hr. Target PTT id 2. Next PTT level was ordered for 1740.
--- NOTE | 2017-02-27 12:20 | NUR ---
Rounds Patient is resting in bed. Family is at the bedside.
--- NOTE | 2017-02-27 14:17 | NUR ---
Rounds Patient is resting in bed. Heparin drip is currently at 17u/hr.
--- NOTE | 2017-02-27 16:39 | NUR ---
Rounds Patient is resting in bed. Call light is within reach.
--- NOTE | 2017-02-27 18:00 | NUR ---
RN Note Rounded on the patient and the patient stated the MD will discharge him today. Explained to the patient that I currently do not have a discharge ordered. Patient became upset and asked to speak with the CN. Will follow up.
--- NOTE | 2017-02-27 18:28 | NUR ---
Spoke with Spoke with Dr. Wong who stated that the patient will be discharged. MD stated that he will enter a discharge order momentarily.
[2017-02-27] MEDS ORDERED: WARF5TAB2 PO (18:37)
--- NOTE | 2017-02-27 18:50 | NUR ---
Closing Note Patient is resting in bed. IV is on the LFA 22g running Heparin drip @ 17u/hr. Patient is currently sitting in bed. Call light is within reach. Will endorse care to the oncoming nurse.
--- NOTE | 2017-02-27 20:00 | NUR ---
INITIAL CONTACT patient is alert oriented x4. patient breathing is even and nonlabored. patient breath sound clear bilateral upper lobes and diminished bilateral lower lobes. abdomen is round, large, soft. LBM 02/28/16. bilateral radial and pedal pulse regular and equal. patient bilateral upper extremity and lower extremity strength normal. informed patient that he will be discharge tonight. patient stated that he did not understand why he is discharged today and yesterday he was called back. he wanted to know for sure he is not going to be called back. informed him that i will confirm with conveyor line battery charger and MD. patient verbalized understanding. will continue to monitor.
[2017-02-27] MEDS ORDERED: PREDNISONE 10 MG TABLET PO SCH (21:00)
--- NOTE | 2017-02-27 21:03 | NUR ---
MD CALL called and spoke with Dr. Wong. asked him regarding patient's discharge. per doctor Wong, patient stable to be discharged home. asked him regarding patient's medication, how Xarelto and Coumadin is prescribed together. per doctor Wong, the order was already sent to pharmacy yesterday so that's why Xarelto still shows on the list, but he already told patient that he is not to take xarelto and he already set up Coumadin clinic for patient. also informed him that patient wanted to speak to folder stitcher operator. doctor Wong stated that to call folder stitcher operator and ask if they are going to see patient today. patient to be discharged as soon as folder stitcher operator see patient, if they are not going to see patient today, then patient needs to be discharged. will call strategic consultant folder stitcher operator.
--- NOTE | 2017-02-27 21:10 | NUR ---
MD TONG called and spoke with Dr. Charlton, asked if he has seen patient. he states that he already saw patient. informed him that patient would be discharged, he stated that it's "ok" to discharge patient.
--- NOTE | 2017-02-27 21:30 | NUR ---
explained to patient that Dr. Wong was called regarding discharge and Dr. Charlton was also called to inform him of patient patient's discharge. per Dr. Wong, patient stable to be discharged and Dr. Charlton agreed with discharge. patient verbalized understanding.
--- NOTE | 2017-02-27 22:00 | NUR ---
patient's father wanted to know why patient is being discharged, he states that he has come because he did not want patient to drive himself home. patient's father states that he is upset that patient is being discharged because patient was discharged yesterday also and they ended up calling him back. explained to patient's father that MD wanted INR level greater than 2 and patient's INR level is 2.5. also explained to him that MD was called to verify that patient is being discharged and manager council aware of patient's discharge. also informed him that patient would be discharged with Coumadin and per Dr. Wong, patient was arranged for Coumadin clinic to follow up on patient's INR level. patient's father wanted to know what other medications he is being discharged with and explained the medications patient would receive from pharmacy. he verbalized understanding.
--- NOTE | 2017-02-27 23:10 | NUR ---
D/C Patient Patient given medication reconciliation form and D/C instructions. Exit Care provided. educated patient the importance of taking medication as instructed and educated patient on the indication of medications. informed patient that per Dr. Wong, patient would be following up with Coumadin clinic. informed him to call if he does not receive call from Coumadin clinic. expressed the importance of following up with Coumadin clinic. also informed patient to follow up with primary care doctor within one week. Patient verbalized understanding. patient stated that he is not sure why he needs to take blood pressure medication. informed patient that his blood pressure has been high and patient needs to control his blood pressure. patient verbalized understanding. Ambulatory with steady gait for discharge to home. Patient in stable condition, ID band removed. IV catheter removed, intact and dressing applied, no active bleeding. helped patient to his car via wheelchair with elizabeth's father walking next to patient. All belongings sent with patient. offered to call taxi for patient instead of patient driving, patient refused stating that he wants to take his car. observed patient go to his car and drive away. no distress noted at the time of departure.
== END 2017-02-27 23:10 | disposition home or self-care (01) | DRG 291 ==
LOC: SED 15:23 → SIC 21:14 → MERGE 21:14 → SIC 21:30 → SMU 02-24 09:40 → STU 02-24 12:35
PROVIDERS: ADMIT Internal Medicine Hospice and Palliative Medicine; ATTEND Internal Medicine Hospice and Palliative Medicine
DX: I11.0 Hypertensive heart disease with heart failure (principal); J96.01 Acute respiratory failure with hypoxia; I26.99 Other pulmonary embolism without acute cor pulmonale; E66.01 Morbid (severe) obesity due to excess calories; I27.81 Cor pulmonale (chronic); Z68.43 Body mass index [BMI] 50.0-59.9, adult; I50.43 Acute on chronic combined systolic (congestive) and diastolic (congestive) heart failure; I42.9 Cardiomyopathy, unspecified; F10.20 Alcohol dependence, uncomplicated; Y90.9 Presence of alcohol in blood, level not specified; G47.33 Obstructive sleep apnea (adult) (pediatric); G47.30 Sleep apnea, unspecified; F17.200 Nicotine dependence, unspecified, uncomplicated; R79.1 Abnormal coagulation profile; Z88.1 Allergy status to other antibiotic agents; Z88.0 Allergy status to penicillin
CPT/HCPCS: 36415; 36600; 71045; 71260-TC; 80048; 80053; 80061; 81000-TC; 82550-TC; 82803-TC; 83735-TC; 83880; 84443-TC; 84484; 85025; 85379; 85610-TC; 85730-TC; 87081; 93005; 93306; 93970; 94640; 94760; 96365; 96375; 99285; J1030; J1644; J1940; J2060; J2270; J2930; J3475; J7512; Q2037; Q9967

== ENCOUNTER 2019-05-11 16:32 | Emergency (ER) | payer BC, MEDICAID ==
[~2019-05-11] VITALS: Ht 182.9 cm; Wt 145.1 kg
[~2019-05-11 16:32] MED LIST: ALBMDI INH; ASPI-1153 PO; FURO-150 PO; LIP20 PO; LISI-209 PO; METF-509 PO; METO25TA3 PO; PRED20TA PO; PRO40 PO; RIVA15TA PO; WARF5TAB2 PO
[2019-05-11 16:35] VITALS: BP_SYST 183
[2019-05-11] MEDS ORDERED: IBUP-1969 PO (16:46)
[2019-05-11 17:30] VITALS: BP_SYST 183
== END 2019-05-11 17:30 | disposition home or self-care (01) ==
LOC: SED 16:32
DX: S83.411A Sprain of medial collateral ligament of right knee, initial encounter (principal); J45.909 Unspecified asthma, uncomplicated; I10 Essential (primary) hypertension; Z86.718 Personal history of other venous thrombosis and embolism; Z88.0 Allergy status to penicillin; Z88.1 Allergy status to other antibiotic agents; X58.XXXA Exposure to other specified factors, initial encounter; Y93.89 Activity, other specified; Y92.89 Other specified places as the place of occurrence of the external cause; Y99.8 Other external cause status
CPT/HCPCS: 73564; 99283

== ENCOUNTER 2019-07-08 14:45 | Inpatient (IN) | payer MEDICAID ==
[~2019-07-08] VITALS: Ht 182.9 cm; Wt 145.1 kg
[~2019-07-08 14:45] MED LIST changes: -ALBMDI INH; -ASPI-1153 PO; -FURO-150 PO; +IBUP-1969 PO; -LIP20 PO; -LISI-209 PO; -METF-509 PO; -METO25TA3 PO; -PRED20TA PO; -PRO40 PO; -RIVA15TA PO; -WARF5TAB2 PO
[2019-07-08 14:52] VITALS: BP_SYST 159
[2019-07-08] MEDS ORDERED: NACL 0.9% 1,000 ML IV ONE ×2 (14:52→19:30)
--- NOTE | 2019-07-08 14:54 | NUR ---
EKG performed at BS by Yoan RN in triage. Physician given copy of EKG for review.
--- NOTE | 2019-07-08 14:55 | NUR ---
Patient to ER bed 1 to gown for evaluation. Side rails up. Report given to Manfred Chapman RN.
[2019-07-08] MEDS ORDERED: ASPIRIN 81 MG TAB.CHEW PO ONE (15:00)
--- NOTE | 2019-07-08 15:04 | NUR ---
Report given to Abimbola LUCAS.
--- NOTE | 2019-07-08 15:10 | NUR ---
PATIENT BROUGHT IN BY SELF COMPLAINING ON NON RADIATION CHEST PAIN WITH PARATHESIA, HEARTBURN AND SHORTNESS OF BREATH WITH NAUSEA X 2 DAYS. PAIN 5/10. JHISTOFY OF HTN, DVT, CHF AND ASTHMA. PATIENT ALSO REPORTS HE IS ANXIOUS. PATIENT ABLE TO SPEAK FULL SENTENCES . NO RESPIRATORY DISTRESS NOTED. DENIES TAKING ANY MEDICATION FOR PAIN. DENIES ANY FEVER, COUGH, ABDOMINAL PAIN, VOMITING OR DIARRHEA, HEADACHE, DIZZINESS OR VISION CHANGES. NO OTHER COMPLAINTS/INJURIES PER PATIENT OR NOTED. WILL CONTINUE TO MONITOR.
--- NOTE | 2019-07-08 15:14 | NUR ---
ER Dr. JORDAN at bedside examining patient.
[2019-07-08] MEDS ORDERED: FUROSEMIDE 40 MG/4 ML VIAL IVP ONE (15:15)
--- NOTE | 2019-07-08 15:15 | NUR ---
# 18 gauge angiocath placed to LAC. Use of asceptic technique. Opsite placed over site. Blood return noted. Blood AND CULTURES for lab drawn from site. Flushed with 10 cc of normal saline. No evidence of infiltration noted. Patient tolerated well.
--- NOTE | 2019-07-08 15:30 | NUR ---
Medicated per MD orders. IVF infusing with no s/s of infiltration at this time. Will cont to monitor
[2019-07-08 15:43] LABS: BASOPHILS # (AUTO) 0.1 K/uL (0.0-0.2); BASOPHILS % (AUTO) 0.8 % (0.0-2.0); EOSINOPHILS # (AUTO) 0.4 K/uL (0.0-0.4); EOSINOPHILS % (AUTO) 3.4 % (0.0-4.0); HEMATOCRIT 48.5 % (36-54); HEMOGLOBIN 16.5 g/dL (14.0-18.0); LYMPHOCYTES # (AUTO) 2.6 K/uL (1.0-5.5); LYMPHOCYTES % (AUTO) 22.9 % (20.5-51.5); MEAN CORPUSCULAR HEMOGLOBIN 30 pg (27-31); MEAN CORPUSCULAR HGB CONC 34 % (32-36); MEAN CORPUSCULAR VOLUME 87 fL (79.0-98.0); MONOCYTES # (AUTO) 0.7 K/uL (0.0-1.0); MONOCYTES % (AUTO) 5.8 % (1.7-9.3); NEUTROPHILS # (AUTO) 7.7 K/uL (1.8-7.7); NEUTROPHILS % (AUTO) 67.1 % (40.0-70.0); PLATELET COUNT (AUTO) 296 K/uL (130-430); RED BLOOD CELL COUNT(AUTO) 5.55 MIL/uL (4.2-6.2); RED CELL DISTRIBUTION WIDTH 13.8 % (9.0-15.0); WHITE BLOOD COUNT (AUTO) 11.5 K/uL (4.8-10.8)
[2019-07-08 15:48] LABS: CALCIUM 8.8 mg/dL (8.4-11.0); CREATININE 0.95 mg/dL (0.55-1.30); POTASSIUM 3.7 mmol/L (3.5-5.1)
[2019-07-08 15:51] LABS: INR 1.1 (0.80-1.20); PROTHROMBIN TIME 11.3 SECS (9.5-12.5)
[2019-07-08 15:55] LABS: ALBUMIN 3.7 g/dL (3.4-4.8); TOTAL BILIRUBIN 0.3 mg/dL (0.0-1.0)
[2019-07-08 16:12] LABS: BILIRUBIN,URINE NEGATIVE (NEGATIVE); BLOOD, URINE NEGATIVE (NEGATIVE); CLARITY/URINE CLEAR (CLEAR); COLOR,URINE YELLOW (YELLOW); GLUCOSE,URINE NEGATIVE (NEGATIVE); KETONES,URINE NEGATIVE (NEGATIVE); LEUKOCYTE ESTERASE ,URINE NEGATIVE (NEGATIVE); NITRITE, URINE NEGATIVE (NEGATIVE); PH,URINE 5.5 (5.0-8.0); PROTEIN URINE NEGATIVE (NEGATIVE); UROBILINOGEN,URINE 0.2 (0.2-1.0)
--- NOTE | 2019-07-08 16:20 | NUR ---
Patient denies any chest pain or discomfort at this time. VSS he is resting comfortably at the bedside. Will continue to monitor.
--- NOTE | 2019-07-08 16:20 | NUR ---
Note clinton in ED - 07/08/19 at 1842 by PERFECTO Patien denies any chest pain or discomfort at this time. VSS he is resting comfortably at the bedside.
[2019-07-08] MEDS ORDERED: LORazepam 2 MG/ML VIAL IVP ONE (17:00)
--- NOTE | 2019-07-08 17:35 | NUR ---
VSS. Patient denies any chest pain and all other symptoms. He has gotten up to use the restroom a few times due to medication. He is able to ambulate w/out assistance. He is does appear anxious or in distress. Will continue to monitor.
--- NOTE | 2019-07-08 18:45 | NUR ---
Pt. currently resting at this time. Awaiting orders from MD regarding decision to admit or DC. Patient updated and is cooperative.
--- NOTE | 2019-07-08 18:49 | NUR ---
Pt. placed on 2L nasal cannula because it was observed that pt. was sating at 88-91 while he was asleep. Pt. would wake up snoring and stated that he was having some trouble breathing. O2 sat now at 96%.
[2019-07-08] MEDS ORDERED: NITROGLYCERIN 0.4 MG TAB.SUBL SL PRN (20:00)
--- NOTE | 2019-07-08 20:15 | NUR ---
End of life care decisions discussed with Dr. Dacosta. Opportunity for questions and concerns addressed. Patient's code status is Full Code. Paperwork completed and placed in chart.
[2019-07-08 20:17] LABS: BARBITURATE, URINE NEGATIVE (NEG <=200); BENZODIAZEPINE, URINE NEGATIVE (NEG <=150); CANNABINOID, URINE NEGATIVE (NEG <=50); COCAINE, URINE NEGATIVE (NEG <=150); METHAMPHETAMINES SCREEN,URINE NEGATIVE (NEG <=500); OPIATE, URINE NEGATIVE (NEG <=100); PHENCYCLIDINE SCREEN,URINE NEGATIVE (NEG <=25); UR TRICYCLIC ANTIDEPRESSANTS NEGATIVE (NEG <=300); URINE AMPHETAMINE NEGATIVE (NEG <=500); URINE METHADONE NEGATIVE (NEG <=200); URINE OXYCODONE SCREEN NEGATIVE (NEG <=100); URINE PROPOXYPHENE SCREEN NEGATIVE (NEG <=300)
--- NOTE | 2019-07-08 20:19 | NUR ---
Personal Belongings List completed.
--- NOTE | 2019-07-08 20:25 | NUR ---
Medication reconciliation completed with information provided by pt.Any prior medication reconciliation on file was reviewed and corrected.
[2019-07-08] MEDS ORDERED: INSU100V7 SUBCUT (20:39)
[2019-07-08] MEDS ORDERED: MELA3TAB64 PO (20:39)
[2019-07-08] MEDS ORDERED: NYSTATIN POWDER (20:39)
[2019-07-08] MEDS ORDERED: [UNRECOGNIZED DRUG - CODE] PO (20:39)
--- NOTE | 2019-07-08 21:14 | NUR ---
Patient moved to bed 4 for privacy. Placed on environmental monitoring specialist, NIBP and Pulse ox. Voiced no complaints. Will continue to monitor.
--- NOTE | 2019-07-08 21:50 | NUR ---
VSS. Pt. does not appear anxious or in any distress at this time. Pt. given socks, readjusted, and made more comfortable at this time. Will continue to monitor.
[2019-07-08] MEDS ORDERED: cloNIDine HCL 0.2 MG TABLET PO PRN (23:15)
[2019-07-08] MEDS ORDERED: CARVEDILOL 12.5 MG TABLET (COREG) PO ONE (23:15)
[2019-07-08] MEDS ORDERED: ENOXAPARIN SODIUM 40 MG/0.4 ML SYRINGE SUBCUT ONE (23:15)
--- NOTE | 2019-07-08 23:23 | NUR ---
Dr. Marcial in ED to evaluate patient at bedside.
--- NOTE | 2019-07-09 00:30 | NUR ---
VSS. Pt is resting and does not report any pain at this time.
[2019-07-09] MEDS ORDERED: CARVEDILOL 12.5 MG TABLET (COREG) ONE (00:55)
--- NOTE | 2019-07-09 01:40 | NUR ---
Pt. is stable, does not appear in distress, and is resting at this time.
--- NOTE | 2019-07-09 03:06 | NUR ---
Admission Note Received patient from ER with diagnosis of chest pain. Initial Plan of Care discussed-patient verbalized understanding. Oriented to room, call light, pain management and safety.
--- NOTE | 2019-07-09 03:10 | NUR ---
Patient will be admitted to care of Dr. Shahid. Admitted to Telemetry unit. Will go to room 116B. Belongings list completed. Complete and up to date summary report printed. SBAR report to be given at bedside with opportunity for questions.
[2019-07-09 03:22] VITALS: BP_SYST 140
--- NOTE | 2019-07-09 03:49 | NUR ---
CONSULT: CONSULT CALLED FOR DR. DANII CHANDRA IS CORRECTIVE AND MANUAL ARTS THERAPIST THIS MORNING I SPOKE WITH JOSE DOLLY REASON FOR CONSULT: CHEST PAIN REQUESTING CONSULT: DR. WILLIS ACID CUTTER PHONE NUMBER: [phone]
--- NOTE | 2019-07-09 03:55 | NUR ---
SNACKS PATIENT STATED THAT HE IS HUNGRY, SNACKS GIVEN. ALL NEEDS MET AT THIS TIME. CALL LIGHT WITH PATIENT. WILL CONTINUE TO MONITOR.
--- NOTE | 2019-07-09 05:30 | NUR ---
ROUNDS PATIENT ASLEEP AT THIS TIME. NO SIGNS OF DISCOMFORT NOTED. CHEST RISE AND FALL EVEN BILATERALLY. CALL LIGHT WITH PATIENT. WILL CONTINUE TO MONITOR.
--- NOTE | 2019-07-09 06:31 | NUR ---
CLOSING NOTES PATIENT IN BED, SLEEPING AT THIS TIME. NO S/S OF ACUTE DISTRESS NOTED. BREATHING EVEN AND UNLABORED. HOB SLIGHTLY RAISED, NASAL CANULA ATTACHED PROPERLY, ON 2L OF OXYGEN. ALL NEEDS MET THROUGHOUT SHIFT. FALL AND SAFETY PRECAUTIONS MAINTAINED THROUGHOUT SHIFT. WILL CONTINUE TO MONITOR UNTIL PATIENT CARE IS ENDORSED TO ONCOMING DAYSHIFT NURSE.
[2019-07-09 07:27] LABS: BASOPHILS # (AUTO) 0.1 K/uL (0.0-0.2); BASOPHILS % (AUTO) 0.6 % (0.0-2.0); EOSINOPHILS # (AUTO) 0.5 K/uL (0.0-0.4); EOSINOPHILS % (AUTO) 4.7 % (0.0-4.0); HEMATOCRIT 45.1 % (36-54); HEMOGLOBIN 15.3 g/dL (14.0-18.0); LYMPHOCYTES # (AUTO) 2.4 K/uL (1.0-5.5); LYMPHOCYTES % (AUTO) 24.2 % (20.5-51.5); MEAN CORPUSCULAR HEMOGLOBIN 30 pg (27-31); MEAN CORPUSCULAR HGB CONC 34 % (32-36); MEAN CORPUSCULAR VOLUME 89 fL (79.0-98.0); MONOCYTES % (AUTO) 9.8 % (1.7-9.3); NEUTROPHILS % (AUTO) 60.7 % (40.0-70.0); PLATELET COUNT (AUTO) 262 K/uL (130-430); RED CELL DISTRIBUTION WIDTH 13.9 % (9.0-15.0); WHITE BLOOD COUNT (AUTO) 9.9 K/uL (4.8-10.8)
[2019-07-09 07:51] LABS: ALBUMIN 3.2 g/dL (3.4-4.8); CREATININE 0.86 mg/dL (0.55-1.30); FREE T4 (FREE THYROXINE) 0.7 ng/dL (0.6-1.6); POTASSIUM 3.9 mmol/L (3.5-5.1); THYROID STIMULATING HORMONE 0.42 uIu/mL (0.34-4.82); TOTAL BILIRUBIN 0.5 mg/dL (0.0-1.0)
[2019-07-09 08:00] VITALS: BP_SYST 133
--- NOTE | 2019-07-09 08:00 | NUR ---
ASSUMPTION OF CARE: RECEIVED PT A/A/OX4, DX:INADEQUATE PERFUSION, R/T, CHEST PAIN, VSS, AFEBRILE, NO S/S OF DISTRESS, NO C/O PAIN, BREATH SOUNDS ARE CLEAR, BREATHING UNLABORED, IV SITE INTACT, PATENT, NO REDNESS OR SWELLING, ORIENTED TO UNIT, CALL LIGHT PLACED WITHIN REACH, WILL CONT' TO MONITOR AND ASSESS.
[2019-07-09] MEDS ORDERED: CARVEDILOL 12.5 MG TABLET (COREG) PO SCH (09:00)
--- NOTE | 2019-07-09 09:00 | NUR ---
WEIGHT REDUCTION SPECIALIST: MORNING MED GIVEN, PER ORDERED BY Jerri, TOLERATED WELL, CALL LIGHT REMAINS WITHIN REACH, NO C/O CHEST PAIN OR DISCOMFORT, WILL CONT' TO MONITOR AND ASSESS.
[2019-07-09] MEDS: CARVEDILOL 12.5 MG TABLET (COREG) PO SCH ×2 (09:12→20:41)
[2019-07-09 10:24] LABS: TOTAL IRON BIND. CAPACITY 297 ug/dL (250-450)
--- NOTE | 2019-07-09 10:30 | NUR ---
VISIT: AT BEDSIDE FOR ASSESSMENT OF PT, DISCUSSED TREATMENT PLAN WITH PT, PT VERBALIZES UNDERSTANDING, NEW ORDERS GIVEN, WILL CONT' WITH POC.
[2019-07-09 11:30] VITALS: BP_SYST 130
--- NOTE | 2019-07-09 12:00 | NUR ---
NURSES NOTES: PT REMAINS STABLE, NO C/O PAIN OR DISCOMFORT, SR ON TELEMONITOR, NO CHANGES NOTED AT THIS TIME, WILL CONT' TO MONITOR AND ASSESS.
[2019-07-09 16:00] VITALS: BP_SYST 124
--- NOTE | 2019-07-09 16:00 | NUR ---
NURSES NOTES: PT REMAINS STABLE, NO C/O PAIN OR DISCOMFORT, SR ON TELEMONITOR, NO CHANGES NOTED AT THIS TIME, WILL CONT' TO MONITOR AND ASSESS.
--- NOTE | 2019-07-09 19:10 | NUR ---
OPENING NOTE BEDSIDE REPORT RECEIVED FROM DAYSHIFT NURSE. PATIENT RECEIVED LYING IN BED, AWAKE, WATCHING TV. NO S/S OF ACUTE DISTRESS NOTED. BREATHING IS EVEN AND UNLABORED. HOB RAISED, PATIENT REMOVED NASAL CANULA AT THIS TIME, DENIES SOB OR CHEST PAIN. CALL LIGHT WITH PATIENT. BED IS LOCKED AND AT LOWEST POSITION. WILL CONTINUE TO MONITOR.
--- NOTE | 2019-07-09 19:51 | NUR ---
PAGED I PAGED DR. WILLIS I SPOKE WITH NIKKI ALBERTO
[2019-07-09 20:00] VITALS: BP_SYST 131
[2019-07-09] MEDS: ENOXAPARIN SODIUM 40 MG/0.4 ML SYRINGE SUBCUT SCH (20:41)
[2019-07-09] MEDS ORDERED: CLOTRIMAZOLE/BETAMET DIPROP 15 GM TUBE TP SCH (21:00)
--- NOTE | 2019-07-09 21:25 | NUR ---
ROUNDS PATIENT IN BED, WATCHING TV. NO SIGNS OF DISCOMFORT NOTED. CHEST RISE AND FALL EVEN BILATERALLY. PATIENT DENIES PAIN OR SOB. CALL LIGHT WITH PATIENT. DEMONSTRATED BACK PROPER USE OF CALL LIGHT. BED IS LOCKED AND AT LOWEST POSITION. WILL CONTINUE TO MONITOR.
--- NOTE | 2019-07-09 23:00 | NUR ---
ROUNDS PATIENT IN BED SLEEPING AT THIS TIME. NO S/S OF ACUTE DISTRESS NOTED. BREATHING EVEN AND UNLABORED. CALL LIGHT WITH PATIENT. WILL CONTINUE TO MONITOR.
[2019-07-10 00:30] VITALS: BP_SYST 124
--- NOTE | 2019-07-10 01:00 | NUR ---
ROUNDS PATIENT SLEEPING AT THIS TIME. NO SIGNS OF DISCOMFORT NOTED. CHEST RISE AND FALL EVEN BILATERALLY. CALL LIGHT WITH PATIENT. WILL CONTINUE TO MONITOR.
--- NOTE | 2019-07-10 03:00 | NUR ---
ROUNDS PATIENT SLEEPING AT THIS TIME. NO S/S OF ACUTE DISTRESS NOTED. CALL LIGHT WITH PATIENT. WILL CONTINUE TO MONITOR.
--- NOTE | 2019-07-10 06:42 | NUR ---
CLOSING NOTES PATIENT IN BED SLEEPING AT THIS TIME. NO S/S OF ACUTE DISTRESS NOTED. BREATHING IS EVEN AND UNLABORED. ALL NEEDS MET THROUGHOUT SHIFT. FALL AND SAFETY PRECAUTIONS MAINTAINED THROUGHOUT SHIFT. WILL CONTINUE TO MONITOR UNTIL PATIENT CARE IS ENDORSED TO ONCOMING DAYSHIFT NURSE.
--- NOTE | 2019-07-10 07:30 | NUR ---
OPENING NOTES: RECEIVED PATIENT FROM CONSTRUCTION DRIVER NURSE. PATIENT IS AWAKE AND ALERT x4 LAYING DOWN IN BED. PATIENT IS TOLERATING OXYGEN ON ROOM AIR WITH NO SIGNS OF DISTRESS OR SHORTNESS OF BREATH NOTED. PATIENT DENIES ANY PAIN AT THE MOMENT. IV SITE IS PATENT WITH NO SIGNS OF INFILTRATION NOTED. PATIENT IN STABLE CONDITION. SAFETY, FALL, AND ASPIRATION PRECAUTIONS ARE IN PLACE. BED LOCKED IN LOWEST POSITION WITH CALL LIGHT IN REACH. WILL CONTINUE TO MONITOR PATIENT FOR ANY CHANGES.
[2019-07-10 08:13] VITALS: BP_SYST 119
[2019-07-10] MEDS: CLOTRIMAZOLE/BETAMETHASONE 45 GM TOPICAL CREAM TP SCH ×2 (09:26→22:41)
[2019-07-10] MEDS ORDERED: REGADENOSON 0.4 MG/5 ML SYRINGE IVP ONE (10:00)
--- NOTE | 2019-07-10 10:20 | NUR ---
RN ROUNDS: PATIENT DOING STRESS TEST. WILL AWAIT PATIENT'S ARRIVAL BACK TO THE FLOOR.
[2019-07-10 12:00] VITALS: BP_SYST 104
[2019-07-10] MEDS: CARVEDILOL 12.5 MG TABLET (COREG) PO SCH ×2 (12:01→22:40)
--- NOTE | 2019-07-10 12:21 | NUR ---
SS NOTES/ATTEMPT: BOOM OPERATOR attempted to meet with patient for DCP. Pt is currently in Radiology for a test. SS/CM will follow up.
--- NOTE | 2019-07-10 12:27 | NUR ---
RN ROUNDS: PATIENT ARRIVED BACK FROM RADIOLOGY. PATIENT IS AWAKE AND ALERT x4 LAYING DOWN IN BED. PATIENT DENIES ANY PAIN AT THE MOMENT. NO SIGNS OF DISTRESS OR SHORTNESS OF BREATH NOTED. PATIENT IN STABLE CONDITION. WILL CONTINUE TO MONITOR PATIENT FOR ANY CHANGES.
--- NOTE | 2019-07-10 13:19 | NUR ---
Dietitian Recommendations *Recommend: continuing Cardiac diet per MD orders. *For nutrition education prior to discharge. Please see Nutritional Assessment for details CALVIN MEYER
[2019-07-10] MEDS ORDERED: ASPI-1457 PO (14:12)
[2019-07-10] MEDS ORDERED: COR12.5 PO (14:12)
[2019-07-10 14:29] VITALS: BP_SYST 104
--- NOTE | 2019-07-10 14:30 | NUR ---
RN ROUNDS: PATIENT IS AWAKE AND ALERT X4 SITTING IN A CHAIR AT BEDSIDE. PATIENT DENIES ANY PAIN AT THE MOMENT. PATIENT IS TOLERATING OXYGEN ON ROOM AIR WITH NO SIGNS OF DISTRESS OR SHORTNESS OF BREATH NOTED. IV SITE IS PATENT WITH NO SIGNS OF INFILTRATION NOTED. PATIENT IN STABLE CONDITION. WILL CONTINUE TO MONITOR PATIENT FOR ANY CHANGES.
--- NOTE | 2019-07-10 14:44 | NUR ---
PAGED PAGED DR.HECHANOVAVALENTINA AT [phone] SPOKE WITH PAVAN.
[2019-07-10 16:00] VITALS: BP_SYST 139
--- NOTE | 2019-07-10 16:29 | NUR ---
RN ROUNDS: PATIENT IS AWAKE AND ALERT x4 LAYING DOWN IN BED. PATIENT DENIES ANY PAIN AT THE MOMENT. PATIENT IS TOLERATING OXYGEN ON ROOM AIR WITH NO SIGNS OF DISTRESS OR SHORTNESS OF BREATH NOTED. PATIENT IN STABLE CONDITION. WILL CONTINUE TO MONITOR PATIENT FOR ANY CHANGES.
--- NOTE | 2019-07-10 17:20 | NUR ---
PAGED PAGED VALENTINA AKHTAR AT [phone] SPOKE WITH EMMA.
--- NOTE | 2019-07-10 17:25 | NUR ---
CALLED: DR. EPPS CALLED BACK. INFORMED HIM OF THE PRELIMINARY RADIOLOGY REPORT FROM THE STRESS TEST. STATED HE WOULD CALL DR. FOY AND GIVE ME A CALL BACK.
--- NOTE | 2019-07-10 18:30 | NUR ---
CLOSING NOTES: PATIENT IS AWAKE AND ALERT x4 LAYING DOWN IN BED. PATIENT IS TOLERATING OXYGEN ON ROOM AIR WITH NO SIGNS OF DISTRESS OR SHORTNESS OF BREATH NOTED. PATIENT DENIES ANY PAIN AT THE MOMENT. IV SITE IS PATENT WITH NO SIGNS OF INFILTRATION NOTED. PATIENT IS AWAITING DR. FOY TO COME SEE HIM. PATIENT IN STABLE CONDITION. SAFETY, FALL, AND ASPIRATION PRECAUTIONS REMAINED IN PLACE THROUGHOUT THE SHIFT. BED LOCKED IN LOWEST POSITION WITH CALL LIGHT IN REACH. WILL ENDORSE PATIENT CARE TO ONCOMING DRONE PILOT NURSE.
[2019-07-10 20:00] VITALS: BP_SYST 128
--- NOTE | 2019-07-10 21:55 | NUR ---
Call placed to Dr. Rush, Dr. Rodrigues education spec: Call placed to Dr. Rush, however Dr. Rodrigues education spec. Informed him that patient has been waiting for Dr. Rush. Dr Rodrigues asked if patient not seen by Dr. Rush at 6 PM , informed him no then he hanged up the phone.
[2019-07-10] MEDS: ENOXAPARIN SODIUM 40 MG/0.4 ML SYRINGE SUBCUT SCH (22:45)
[2019-07-11] VITALS: BP_SYST 138
--- NOTE | 2019-07-11 00:21 | NUR ---
[facility] TRANSPORTATION: I ARRANGE TRANSFER WITH [facility] @ 0830 I SPOKE WITH CORWIN AHMADI HE SAID WITH HEART MONITOR TRANSPORTATION HAS TO BE ACLS INSTEAD OF BLS. SO MY CHARGE NURSE AGREE WITH [facility] PATIENT WILL BE TRANSFER TO [facility] DR. FOY CAME LAST NIGHT SPOKE WITH [facility] I FAXED FACE SHEET TO [employer] FOR THIS DEPARTMENT.
--- NOTE | 2019-07-11 06:24 | NUR ---
CALLED [facility] I SPOKE WITH WALTER I PUT THEM ON WILL CALL REASON [facility] NEEDS APPROVAL FROM INSURANCE
[2019-07-11 08:00] VITALS: BP_SYST 144
--- NOTE | 2019-07-11 08:42 | NUR ---
INSURANCE AUTHORIZATION CALLED [facility] AND [place] WITH CAMP HEAD COUNSELOR NIEVES WHO INFORMED DOUGH CATCHER THAT CM FROM REQUESTING HOSPITAL NEEDS TO OBTAIN THE AUTHORIZATION. NIEVES ALSO WANTS TO BE NOTIFIED IF THE AUTH WAS OBTAINED. CALLED AND NYLA WETZEL CM TO INFORM HER ABOUT NEED FOR THE AUTHORIZATION TO TRANSFER. INFORMED DR FOY THAT AUTHORIZATION WAS NOT OBTAINED YET OF TIME OF REPORT. DR FOY WILL BE UPDATED
--- NOTE | 2019-07-11 09:00 | NUR ---
Case Management: Transfer to higher level of care/[facility] , landscape laborer for Cardiac angiogram. Called Chery lemos requesting authorization for the transfer. Per nallely Meadows # [phone] ,the auth is pending clinical evaluation by ins. stevens. NALLELY faxed the requested documents: FS, ER note, dbas consultation and progress notes, Gaye stress test report per his request to fax # [phone]. >> NALLELY notified dr. Ortega of the above info and I will let him know once receive the transfer auth. wanted to reschedule the angiogram in the afternoon. US Fozia/intake at [facility]/cheesemaking laborer made aware. >> MILTON Baker made aware of the transfer plan. Addendum: 07/11/19 at 1424 by Dasha Allan RN Late entry for 1300: f/u with Misty/ania/[facility], she said the auth is to be revised. She received fax auth copy from [place] /Chery Oshea requesting ICU bed and needing the CPT code on the auth form as well. I called dr. Rush to verify the order . The stated he could not add on the procedure at landscape laborer today. He rescheduled for tomorrow at 1 pm. The pt needs to be at [facility] by noon tomorrow. The revised order faxed to [place] with confirmed receipt at 1312 hr fax# [phone], tel [phone].
[2019-07-11] MEDS: CARVEDILOL 12.5 MG TABLET (COREG) PO SCH ×2 (10:28→22:20)
[2019-07-11] MEDS: CLOTRIMAZOLE/BETAMETHASONE 45 GM TOPICAL CREAM TP SCH ×2 (10:28→22:21)
[2019-07-11 12:00] VITALS: BP_SYST 128
--- NOTE | 2019-07-11 13:30 | NUR ---
NALLELY Note: Clarification of order: per dr. Ortega D : transfer to [facility] for left cardiac Angiogram. Rescheduling for tomorrow 07/12/19 at 1pm. The patient need to arrive at the receiving by noon. The pt is Tele status and needs Tele bed at [facility]. >> I notified nallely Porter at [employer] [facility] for the rescheduling time. I asked her to revised the authorization for [facility] with the above info as well, and to include the CPT code on the authorization form then fax it to Admitting dept at [facility] fax # [phone] Attn: Misty tel # [phone].-- CM will f/u the completion of the revised auth. >> MILTON Baker and SHAYY Umaña made aware [facility] in am. >> Per [place]: for transportation to [facility], please contact [facility] ambulance service # [phone] opt 4, no authorization required. Addendum: 07/11/19 at 1638 by Dasha Allan RN >> Confirmed with adm Kristineitting dept/[facility], the authorization was received from [place] [facility]. The pt is approved for the procedure tomorrow. I spoke with Maximus Jacskon requesting tele bed assignment tomorrow. She asked to call for bed in am.# [phone], or main line # [phone] asking for [facility] Sup.
[2019-07-11 16:02] VITALS: BP_SYST 112
[2019-07-11] MEDS ORDERED: ATORVASTATIN 10 MG TABLET PO ONE (17:15)
--- NOTE | 2019-07-11 18:38 | NUR ---
ALERT, ORIENTED AND APPROPRIATE, PATIENTLY AWAITING TO GET TRANSFERRED TO [facility] FOR [facility]HER LEVEL OF CARE., FOR ANGIOGRAM. GETS RESCHEDULED TOMORROW 07/11 AT 1300 PER PROTOTYPE CARPENTER, PATIENT MADE AWARE. DIET RESUMED, ONCOMING SHIFT TO FOLLOW UP , FOR TOMORROW PROCEDURE.
--- NOTE | 2019-07-11 19:30 | NUR ---
BEDSIDE REPORT OBTAINED FROM DAY SHIFT NURSE. PT IS FULLY AWAKE, ALERT AND ORIENTED X4. NO C/O PAIN OR DISCOMFORT AND NO ACUTE DISTRESS NOTED. PT WAS INSTRUCTED ON NOTHING BY MOUTH AFTER MIDNIGHT FOR ANGIOGRAM TOMORROW AND PT VERBALIZED UNDERSTANDING. SALINE LOCK IN LAC IS WITHOUT ANY SIGNS OF INFILTRATION. FALL AND SAFETY PRECAUTIONS ARE IN PLACE.
[2019-07-11] MEDS: ENOXAPARIN SODIUM 40 MG/0.4 ML SYRINGE SUBCUT SCH (21:00)
--- NOTE | 2019-07-11 23:34 | NUR ---
REPORT GIVEN TO NURSE LANETTE FOR CONTINUATION OF PT'S NURSING CARE.
--- NOTE | 2019-07-12 00:12 | NUR ---
Received report from SHAYY Ferreira for continuation of care.
[2019-07-12 01:23] VITALS: BP_SYST 134
--- NOTE | 2019-07-12 02:59 | NUR ---
RESTING QUIETLY WITH EYES CLOSED. NO RESPIRATORY DISTRESS NOTED. NO C/O PAIN OR DISCOMFORT. CALL LIGHT WITHIN REACH.
--- NOTE | 2019-07-12 05:57 | NUR ---
Called Video Games Mechanic Sandy at [facility] for bed assignment. Said they didn't have a bed as of now and instructed to call the Video Games Mechanic back after 0730 since the procedure is not until the afternoon.
--- NOTE | 2019-07-12 07:50 | NUR ---
Opening note patient resting in bed, denies pain, a/ox4, assessment complete, Iv line is patent and infusing well, educated medical communication specialist light system and plan of care, he verbalized understanding, no other needs at this time, bed in lowest position, two side rails up, call light within reach, fall and aspiration precautions in place.
[2019-07-12 08:11] VITALS: BP_SYST 126
[2019-07-12] MEDS: CLOTRIMAZOLE/BETAMETHASONE 45 GM TOPICAL CREAM TP SCH (08:32)
[2019-07-12] MEDS: CARVEDILOL 12.5 MG TABLET (COREG) PO SCH (08:32)
--- NOTE | 2019-07-12 08:34 | NUR ---
Medication patient resting in bed, educated on medications uses and potential side effects, he verbalized understanding and tolerated well, administered with small amount of water, only administered beta chelita and topical cream at this time, no other needs at this time, bed in lowest position, two side rails up, call light within reach, fall and aspiration precautions in place.
--- NOTE | 2019-07-12 08:39 | NUR ---
Case mgt: I called Misty at [facility] admitting [phone] to see if bed available yet. Per Misty, no bed yet, procedure is scheduled at 2pm so put the ambulance on will-call and call backshoe person to noon today--eric Kidd urban and regional planner, will put [facility] ambulance on will-call--PO LUCAS
[2019-07-12] MEDS ORDERED: ATORVASTATIN 10 MG TABLET PO SCH (09:00)
[2019-07-12 10:15] VITALS: BP_SYST 126
--- NOTE | 2019-07-12 11:00 | NUR ---
Case mgt: I called [facility] to check on bed status [phone]--no bed yet when she checked with arcadio Marcelo--she wants us to call back again at noon. I explained to Matilda that we have [facility] ambulance contractor to [facility] at noon, but they aren't always timely so we need to have bed maura or send pt to [facility]. PO LUCAS
--- NOTE | 2019-07-12 11:11 | NUR ---
Discharge Planning: [facility] arranged transport to [facility] to lab pack chemist- [facility] ([phone]) trip#[phone] [facility] approx P/U 12:00pm to 12:30pm. CM made aware, CM took patient packet with CD enclosed to nurse station. Addendum: 07/12/19 at 1230 by Marti Skinner DP [facility] put transportationon 'Will Call' with [facility] ([phone]) trip#[phone] [facility] per CM request, because no room from [facility] has been given for patient.
--- NOTE | 2019-07-12 11:45 | NUR ---
RN rounds patient resting in bed, awake, denies pain, updated on plan of care, he verbalized understanding, continuing to monitor, bed in lowest position, two side rails up, call light within reach, fall and aspiration precautions in place.
--- NOTE | 2019-07-12 11:56 | NUR ---
Case mgt: I called [facility]--s/w Ghislaine in admitting--she checked again with house lidia Marcelo who said there's no bed yet. DC tool and production planner Marti is putting [facility] ambulance on will-call for now. I called [facility] oil field laborer--s/w Fozia there who said pt is on schedule for 2:30pm angiogram procedure-I updated her that we are waiting for bed assignment. Nurse Stan updated and she will update pt also. PO LUCAS
--- NOTE | 2019-07-12 12:06 | NUR ---
[facility] CALLED CALLED [facility] AT [phone] SPOKE WITH EMILY LAMBCHAMBER WORKER.
--- NOTE | 2019-07-12 15:03 | NUR ---
PT TRANSFERRED Report given to KALEN LUCAS AT [facility] PRODUCTION SUPERVISOR. Transfer packet with Transfer Orders and Medication Reconciliation form given to EMT with report. Exitcare provided. [facility] ID band removed, replaced with ID band with pt's name and . All belongings sent with patient. Patient left floor via gurney escorted by EMT in no distress.
== END 2019-07-12 15:03 | disposition short-term general hospital (02) | DRG 198 ==
LOC: SED 14:45 → INTOOBSV 19:57 → STU 19:57 → OBSVTOIN 07-10 12:00
PROVIDERS: ADMIT Internal Medicine; ATTEND Internal Medicine
DX: I24.9 Acute ischemic heart disease, unspecified (principal); I42.9 Cardiomyopathy, unspecified; E66.01 Morbid (severe) obesity due to excess calories; I11.0 Hypertensive heart disease with heart failure; I50.9 Heart failure, unspecified; Z68.41 Body mass index [BMI] 40.0-44.9, adult; J45.909 Unspecified asthma, uncomplicated; Z88.8 Allergy status to other drugs, medicaments and biological substances; Z80.7 Family history of other malignant neoplasms of lymphoid, hematopoietic and related tissues; Z71.6 Tobacco abuse counseling; Z83.3 Family history of diabetes mellitus; Z86.711 Personal history of pulmonary embolism; Z86.718 Personal history of other venous thrombosis and embolism; Z87.891 Personal history of nicotine dependence; Z79.899 Other long term (current) drug therapy; Z79.82 Long term (current) use of aspirin; Z88.0 Allergy status to penicillin; Z88.1 Allergy status to other antibiotic agents; I47.1 Supraventricular tachycardia
CPT/HCPCS: 36415; 71045; 80053; 80061; 80307; 81003; 82150-TC; 82550-TC; 83540-TC; 83550-TC; 83605; 83690-TC; 83735-TC; 83880; 84439; 84443-TC; 84484; 85025; 85379; 85610-TC; 85730-TC; 87040-TC; 93005; 93017; 93306; 96361; 96372; 96374; 96375; 99285; A9500; G0378; J1650; J1940; J2060; J2785

== ENCOUNTER 2020-07-29 15:19 | Emergency (ER) | payer MEDICAID ==
[~2020-07-29] VITALS: Ht 182.9 cm; Wt 158.8 kg
[~2020-07-29 15:19] MED LIST changes: +ASPI-1457 PO; +COR12.5 PO; -IBUP-1969 PO
[2020-07-29 15:31] VITALS: BP_SYST 123
[2020-07-29 16:48] LABS: BASOPHILS # (AUTO) 0.1 K/uL (0.0-0.2); BASOPHILS % (AUTO) 0.8 % (0.0-2.0); EOSINOPHILS # (AUTO) 0.3 K/uL (0.0-0.4); EOSINOPHILS % (AUTO) 2.5 % (0.0-4.0); HEMATOCRIT 50.9 % (36-54); HEMOGLOBIN 17.2 g/dL (14.0-18.0); LYMPHOCYTES # (AUTO) 2.6 K/uL (1.0-5.5); LYMPHOCYTES % (AUTO) 20.8 % (20.5-51.5); MEAN CORPUSCULAR HEMOGLOBIN 31 pg (27-31); MEAN CORPUSCULAR HGB CONC 34 % (32-36); MEAN CORPUSCULAR VOLUME 91 fL (79.0-98.0); MONOCYTES # (AUTO) 0.9 K/uL (0.0-1.0); MONOCYTES % (AUTO) 7.2 % (1.7-9.3); NEUTROPHILS # (AUTO) 8.6 K/uL (1.8-7.7); NEUTROPHILS % (AUTO) 68.7 % (40.0-70.0); PLATELET COUNT (AUTO) 262 K/uL (130-430); RED BLOOD CELL COUNT(AUTO) 5.62 MIL/uL (4.2-6.2); RED CELL DISTRIBUTION WIDTH 13.7 % (9.0-15.0); WHITE BLOOD COUNT (AUTO) 12.5 K/uL (4.8-10.8)
[2020-07-29 17:15] LABS: PROTHROMBIN TIME 10.4 SECS (9.5-12.5)
[2020-07-29 17:19] LABS: ANION GAP 14 (5-15); CALCIUM 8.7 mg/dL (8.4-11.0); CHLORIDE 103 mmol/L (98-107); GLUCOSE 153 mg/dL (70-99); POTASSIUM 3.9 mmol/L (3.5-5.1); SODIUM SERUM 141 mmol/L (136-145); UREA NITROGEN, BLOOD 13 mg/dL (8-21)
[2020-07-29 17:23] LABS: C-REACTIVE PROTEIN QUANT < 0.2 mg/dL (0-0.5)
[2020-07-29 17:25] LABS: GFR AFRICAN AMERICAN 102 mL/min (>90)
[2020-07-29 17:34] LABS: ALANINE AMINOTRANSFERASE 45 U/L (12-78); ALBUMIN 3.4 g/dL (3.4-4.8); ASPARTATE AMINOTRANSFERASE 25 U/L (10-37); TOTAL BILIRUBIN 0.2 mg/dL (0.0-1.0)
[2020-07-29] MEDS ORDERED: CLIN300C12 PO (18:25)
[2020-07-29 18:32] VITALS: BP_SYST 110
== END 2020-07-29 18:33 | disposition home or self-care (01) ==
LOC: SED 15:19
DX: L03.115 Cellulitis of right lower limb (principal); Z88.0 Allergy status to penicillin; Z88.8 Allergy status to other drugs, medicaments and biological substances; Z88.1 Allergy status to other antibiotic agents; Z79.899 Other long term (current) drug therapy
CPT/HCPCS: 36415; 73590-TC; 80053; 83605; 85025; 85610-TC; 85730-TC; 86140; 93971; 99285